=== PATIENT | female | born 1970 | race Caucasian/White ===

== ENCOUNTER 2017-07-04 17:33 | Emergency (ER) | payer BC ==
[~2017-07-04] VITALS: Ht 162.6 cm; Wt 47.6 kg
[~2017-07-04 17:33] MED LIST: ACEBUTCAFT PO; ALBU90OI INH; DOCU100 PO; LAMO100 PO; LEVSOD100; LEVSOD125 PO; Norco 5-325 Ta1 EACH PO; OMEP20ER PO; PARO30 PO; PROM25 PO; Percocet 5-3251 EACH PO; Zantac150 MG PO; [UNRECOGNIZED DRUG - OTHER]
[2017-07-04 18:27] LABS: BASOPHILS ABSOLUTE AUTO 0.08 K/mm3 (0.00-0.23); BASOPHILS PERCENT AUTO 1 % (0-2); EOSINOPHILS ABSOLUTE AUTO 0.14 K/mm3 (0.00-0.68); EOSINOPHILS PERCENT AUTO 1 % (0-6); Hematocrit 41.4 % (33.0-51.0); Hemoglobin 14.1 g/dL (11.5-16.0); IMMATURE GRAN ABSOLUTE AUTO 0.06 K/mm3 (0.00-0.10); IMMATURE GRAN PERCENT AUTO 0 % (0-1); LYMPHOCYTES ABSOLUTE AUTO 1.08 K/mm3 (0.84-5.20); LYMPHOCYTES PERCENT AUTO 7 % (21-46); MONOCYTES ABSOLUTE AUTO 0.77 K/mm3 (0.16-1.47); MONOCYTES PERCENT AUTO 5 % (4-13); Mean Corpuscular HGB 29.3 pg (26.0-34.0); Mean Corpuscular HGB Conc 34.1 g/dL (31.5-36.5); Mean Corpuscular Volume 86 fL (80-100); Mean Platelet Volume 10.9 fL (9.1-12.4); NEUTROPHILS PERCENT AUTO 87 % (41-73); Platelet Count 366 K/mm3 (150-400); RDW Coefficient Variation 12.2 % (11.7-14.2); RDW Standard Deviation 38.1 fL (35.1-46.3); Red Blood Cell Count 4.82 M/mm3 (3.80-5.20); White Blood Cell Count 16.33 K/mm3 (4.00-11.30)
[2017-07-04 18:41] LABS: Alanine Aminotransfer (ALT/SGP 19 U/L (12-78); Albumin, Blood 4.2 g/dL (3.4-5.0); Albumin/Globulin Ratio 1.1 (0.8-1.8); Alk Phos 62 U/L (50-136); Anion Gap 10 mmol/L (6-16); Aspartate Aminotrans (AST/SGOT 22 U/L (12-37); Bilirubin, Total 0.8 mg/dL (0.1-1.0); Blood Urea Nitrogen 13 mg/dL (8-24); Bun/Creatinine Ratio 19.1 (12.0-20.0); CO2, Blood 24 mmol/L (21-32); Calcium, Blood 9.4 mg/dL (8.5-10.1); Chloride, Blood 103 mmol/L (98-108); Creatinine, Blood 0.68 mg/dL (0.40-1.00); Globulin, Blood 3.7 g/dL (2.2-4.0); Glomerular Filtration Rate >60 (60-); Glucose, Blood 122 mg/dL (70-99); Sodium, Blood 137 mmol/L (136-145); Total Protein, Blood 7.9 g/dL (6.4-8.2)
[2017-07-04 19:57] LABS: Source, Urine Voided
[2017-07-04 20:00] LABS: Appearance, Urine Clear (Clear); Bilirubin, Urine Neg (Neg); Blood, Urine 2+ (Neg); Color, Urine Amber (P-Yellow); Glucose Qualitative, Urine Neg (Neg); Ketones, Urine 3+ (Neg); Leukocyte Esterase, Urine Neg (Neg); Nitrite, Urine Neg (Neg); Protein, Urine Neg (Neg); Specific Gravity, Urine 1.015 (1.003-1.022); Urobilinogen, Urine NORM (Normal)
[2017-07-04 20:24] LABS: Bacteria Rare /hpf; Red Blood Cells, Urine Not Seen /hpf (0-2); Squamous Epithelial Cells Many /hpf (Few); White Blood Cells, Urine Not Seen /hpf (0-5)
[2017-07-04] MEDS ORDERED: Colace100 MG PO (21:51)
[2018-04-15] MEDS ORDERED: Citalopram HBr40 MG (08:00)
[2018-04-15] MEDS ORDERED: LEVSOD100 (08:00)
== END 2017-07-04 22:06 | disposition home or self-care (01) ==
LOC: ER 17:33
PROVIDERS: Physician Assistant
DX: K59.00 Constipation, unspecified (principal); K64.4 Residual hemorrhoidal skin tags; Z88.0 Allergy status to penicillin; Z79.899 Other long term (current) drug therapy
CPT/HCPCS: 36415; 74018; 74176; 80053; 81001; 83690; 85025; 99284

== ENCOUNTER 2018-06-10 19:43 | Emergency (ER) | payer BC ==
[~2018-06-10] VITALS: Ht 162.6 cm; Wt 56.7 kg
[~2018-06-10 19:43] MED LIST changes: +Citalopram HBr40 MG; +Colace100 MG PO
[2018-06-10 21:05] LABS: Calcium, Ionized (POC) 1.11 mmol/L (1.10-1.46); Chloride (POC) 104 mmol/L (98-108); Creatinine (POC) 0.6 mg/dL (0.6-1.0); Glucose (ISTAT POC) 111 mg/dL (70-99); Hemoglobin (POC) 13.6 g/dL (12.0-16.0); Potassium (POC) 3.6 mmol/L (3.5-5.5); Sodium (POC) 139 mmol/L (135-148); Total CO2 (POC) 21 mmol/L (21-32)
[2018-06-11] MEDS ORDERED: Zofran8 MG PO (00:11)
[2018-06-11] MEDS ORDERED: Kristalose20 GM PO (00:11)
== END 2018-06-11 00:39 | disposition home or self-care (01) ==
LOC: ER 19:43
PROVIDERS: Emergency Medicine
DX: K59.09 Other constipation (principal); Z88.0 Allergy status to penicillin; Z79.899 Other long term (current) drug therapy; E78.5 Hyperlipidemia, unspecified; F32.9 Major depressive disorder, single episode, unspecified; K21.9 Gastro-esophageal reflux disease without esophagitis; G40.909 Epilepsy, unspecified, not intractable, without status epilepticus; E03.9 Hypothyroidism, unspecified
CPT/HCPCS: 74018; 80047; 85014; 96374; 96375; 99284-25; J2060; J2405; J3010

== ENCOUNTER → 2018-09-08 | Outpatient (CLI) | payer BC ==
[~2018-09-08] MED LIST changes: +Kristalose20 GM PO; +Zofran8 MG PO
[2018-09-08 19:39] LABS: Source, Urine Catheter
[2018-09-08 19:57] LABS: Bilirubin, Urine Neg (Neg); Blood, Urine Neg (Neg); Glucose Qualitative, Urine Neg (Neg); Ketones, Urine Neg (Neg); Leukocyte Esterase, Urine Neg (Neg); Nitrite, Urine Neg (Neg); Protein, Urine Neg (Neg); Specific Gravity, Urine 1.025 (1.003-1.022); Urobilinogen, Urine NORM (Normal)
[2018-09-08 20:09] LABS: Appearance, Urine Clear (Clear); Color, Urine Yellow (P-Yellow)
== END | disposition home or self-care (01) ==
LOC: LAB 19:38 → LAB SHORT 19:38
PROVIDERS: Obstetrics & Gynecology Gynecology
DX: Z01.812 Encounter for preprocedural laboratory examination (principal); N94.6 Dysmenorrhea, unspecified
CPT/HCPCS: 81003

== ENCOUNTER → 2019-05-13 | Outpatient (CLI) | payer BC ==
[~2019-05-13] MED LIST changes: +IBUP800 PO; +SENN187 PO
[2019-05-15 15:06] LABS: HPV 16 Negative (Negative); HPV 18 Negative (Negative); HPV OTHER HR TYPES Negative (Negative)
== END | disposition home or self-care (01) ==
LOC: LAB 12:04 → LAB SHORT 12:04
PROVIDERS: Nurse Practitioner Women's Health
DX: Z12.4 Encounter for screening for malignant neoplasm of cervix (principal); R87.810 Cervical high risk human papillomavirus (HPV) DNA test positive; Z91.89 Other specified personal risk factors, not elsewhere classified
CPT/HCPCS: 87624; G0123

== ENCOUNTER → 2019-06-25 | Outpatient (CLI) | payer BC | LOC: LAB SHORT 12:30 → LAB 12:30 | DX: R10.2 Pelvic and perineal pain (principal) | CPT/HCPCS: 87086 ==

== ENCOUNTER 2019-07-02 10:03 | Day surgery (SDC) | payer BC ==
[~2019-07-02] VITALS: Ht 162.6 cm; Wt 47.3 kg
[~2019-07-02 10:03] MED LIST changes: -IBUP800 PO; -SENN187 PO
--- NOTE | 2019-07-02 10:40 | NUR ---
Ambulatory in Day Surgery History, Chart, Medications and Allergies reviewed before start of procedure. Patient confirms NPO status and agrees with scheduled surgery. Lungs clear T/O to Auscultation.
--- NOTE | 2019-07-02 12:46 | NUR ---
07/02/19 1246 Meghan Beltran CATH PLACED BY MAGGY CONRAD, 2ND YEAR RN STUDENT, UNDER SUPERVISION OF ORD.MMA.
--- NOTE | 2019-07-02 18:00 | NUR ---
SHIFT SUMMARY POD 0 S/P ROBOTIC LAVH; A/O WITH VSS. GAUZE DRESSINGS TO ABD SITES X4 C/D/I WITH NO ABD OR VAGINAL BLEEDING NOTED. REPORTS PAIN AT TOLERABLE LEVEL WITH HEAT THERAPY, REPOSITIONING PRN, AND MEDICATION PER EMAR. DENIES N/V, TOLERATING REGULAR DIET. MANLEY IN PLACE AND DRAINING CLEAR, YELLOW URINE. CURRENTLY RESTING IN BED WITH CALL LIGHT IN REACH. WILL CONT TO MONITOR AND GIVE REPORT TO ONCOMING RN.
[2019-07-03 04:34] LABS: BASOPHILS ABSOLUTE AUTO 0.05 K/mm3 (0.00-0.23); BASOPHILS PERCENT AUTO 0 % (0-2); EOSINOPHILS ABSOLUTE AUTO 0.01 K/mm3 (0.00-0.68); EOSINOPHILS PERCENT AUTO 0 % (0-6); Hematocrit 33.8 % (33.0-51.0); Hemoglobin 11.1 g/dL (11.5-16.0); IMMATURE GRAN ABSOLUTE AUTO 0.08 K/mm3 (0.00-0.10); IMMATURE GRAN PERCENT AUTO 0 % (0-1); LYMPHOCYTES ABSOLUTE AUTO 1.35 K/mm3 (0.84-5.20); LYMPHOCYTES PERCENT AUTO 7 % (21-46); MONOCYTES ABSOLUTE AUTO 1.54 K/mm3 (0.16-1.47); MONOCYTES PERCENT AUTO 8 % (4-13); Mean Corpuscular HGB 29.8 pg (26.0-34.0); Mean Corpuscular HGB Conc 32.8 g/dL (31.5-36.5); Mean Corpuscular Volume 91 fL (80-100); Mean Platelet Volume 10.6 fL (9.1-12.4); NEUTROPHILS ABSOLUTE AUTO 15.73 K/mm3 (1.96-9.15); NEUTROPHILS PERCENT AUTO 84 % (41-73); Platelet Count 262 K/mm3 (150-400); RDW Standard Deviation 39.8 fL (35.1-46.3); Red Blood Cell Count 3.73 M/mm3 (3.80-5.20); White Blood Cell Count 18.76 K/mm3 (4.00-11.30)
--- NOTE | 2019-07-03 07:40 | NUR ---
SUMMARY PT REQUIRING IV AND PO PAIN MEDS THIS SHIFT. MANLEY OUT THIS AM. SCANT VAG SPOTTING ON HAMLET PAD. ABD DSNGS D/I.HAS BEEN OOB.
[2019-07-03] MEDS ORDERED: Percocet 5-3251 EACH PO (12:51)
[2019-07-03] MEDS ORDERED: IBUP800 PO (12:52)
[2019-07-03] MEDS ORDERED: PROM25 PO (12:53)
[2019-07-03] MEDS ORDERED: DOCU100 PO (12:54)
[2019-07-03] MEDS ORDERED: SENN187 PO (12:55)
--- NOTE | 2019-07-03 13:18 | NUR ---
DISCHARGE INSTRUCTIONS REVIEWED WITH PATIENT AND HER SPOUSE. PATIENTS GIVEN WRITTEN PRESCRIPTIONS
--- NOTE | 2019-07-03 14:00 | NUR ---
1350 DISCHARGED TO HOME WITH
== END 2019-07-03 13:50 | disposition home or self-care (01) ==
LOC: ORSCMMR 10:03 → ORD 11:15 → ORSCMMR 11:15 → ORD 11:30 → SURS 16:18 → ORSCMMR 07-03 13:50
PROVIDERS: Obstetrics & Gynecology
PROC: 8E0W4CZ Robotic Assisted Procedure of Trunk Region, Percutaneous Endoscopic Approach (ICD-10-PCS; principal; 2019-07-02 11:15)
PROC: 0UT2FZZ Resection of Bilateral Ovaries, Via Natural or Artificial Opening With Percutaneous Endoscopic Assistance (ICD-10-PCS; principal; 2019-07-02 11:15)
PROC: 0DNU4ZZ Release Omentum, Percutaneous Endoscopic Approach (ICD-10-PCS; principal; 2019-07-02 11:15)
PROC: 0UT9FZZ Resection of Uterus, Via Natural or Artificial Opening With Percutaneous Endoscopic Assistance (ICD-10-PCS; principal; 2019-07-02 11:15)
DX: N80.3 Endometriosis of pelvic peritoneum (principal); N94.10 Unspecified dyspareunia; R10.2 Pelvic and perineal pain; D25.9 Leiomyoma of uterus, unspecified; K66.0 Peritoneal adhesions (postprocedural) (postinfection); E03.9 Hypothyroidism, unspecified; Z79.899 Other long term (current) drug therapy
CPT/HCPCS: 58552; 49329; S2900; 36415; 85025; 86850; 86900; 86901; 88307; J0690; J1100; J1650; J1885; J2250; J2370; J2405; J2704; J3010; J7120

== ENCOUNTER → 2021-04-14 | Outpatient (CLI) | payer BC ==
[~2021-04-14] MED LIST changes: +IBUP800 PO; +SENN187 PO
== END ==
LOC: LAB 16:20 → LAB SHORT 16:20
DX: R30.0 Dysuria (principal); Z88.0 Allergy status to penicillin
CPT/HCPCS: 87086

== ENCOUNTER → 2024-02-10 | Outpatient (CLI) | payer OTHER ==
[2024-02-11 15:40] LABS: Source, Urine Clean Catch
[2024-02-11 17:31] LABS: Appearance, Urine Clear (Clear); Bilirubin, Urine Neg (Neg); Blood, Urine 1+ (Neg); Color, Urine Yellow (P-Yellow); Glucose Qualitative, Urine Neg (Neg); Ketones, Urine Neg (Neg); Leukocyte Esterase, Urine Neg (Neg); Nitrite, Urine Neg (Neg); Protein, Urine 1+ (Neg); Urobilinogen, Urine NORM (Normal)
[2024-02-11 17:54] LABS: Bacteria Many /hpf; Squamous Epithelial Cells Few /hpf (Few)
== END ==
LOC: LAB SHORT 16:30 → LAB 16:30
PROVIDERS: Nurse Practitioner Family
DX: N39.0 Urinary tract infection, site not specified (principal)
CPT/HCPCS: 81001; 87086

== ENCOUNTER 2024-03-22 13:46 | Emergency (ER) | payer OTHER ==
[~2024-03-22] VITALS: Ht 162.6 cm; Wt 46.3 kg
[2024-03-22 14:05] VITALS: BP 145/71
[2024-03-22 14:18] LABS: Source, Urine Clean Catch
[2024-03-22 14:28] LABS: Appearance, Urine Hazy (Clear); Bilirubin, Urine Neg (Neg); Blood, Urine 5+ (Neg); Color, Urine Brown (P-Yellow); Glucose Qualitative, Urine Neg (Neg); Ketones, Urine Neg (Neg); Leukocyte Esterase, Urine 3+ (Neg); Nitrite, Urine Pos (Neg); Protein, Urine 3+ (Neg); Urobilinogen, Urine 1+ (Normal)
[2024-03-22 14:46] LABS: Bacteria Many /hpf; Hyaline Casts 0-2 /lpf (0-2); Red Blood Cells, Urine TNTC /hpf (0-2); Squamous Epithelial Cells Mod /hpf (Few); Transitional Epithelial Cells Few /hpf (0-Rare); White Blood Cells, Urine TNTC /hpf (0-5)
[2024-03-22 15:10] LABS: Trichomonas Few /hpf
[2024-03-22] MEDS ORDERED: NITR100CA PO (15:10)
[2024-03-22] MEDS ORDERED: Nitrofurantoin/Nitrofuran Mac 100 MG Cap PO ONE (15:15)
== END 2024-03-22 15:22 | disposition home or self-care (01) ==
LOC: ER 13:46
PROVIDERS: Physician Assistant
DX: N39.0 Urinary tract infection, site not specified (principal); G40.909 Epilepsy, unspecified, not intractable, without status epilepticus; Z90.710 Acquired absence of both cervix and uterus
CPT/HCPCS: 81001; 87086; 99283; A9270